=== PATIENT | female | born 1975 | race African-American/Black ===

== ENCOUNTER 2016-07-19 20:20 | Emergency (ER) | payer MEDICAID ==
[~2016-07-19] VITALS: Ht 165.1 cm; Wt 95.0 kg
[~2016-07-19 20:20] MED LIST: CYCL5TAB PO; IBUP-232 PO; PRED50 PO
[2016-07-19 20:22] VITALS: BP 133/76; PULSE 74; RESP 16; TEMP 98.2; O2SAT 98
[2016-07-19 23:55] VITALS: BP 119/76; PULSE 64; RESP 16; O2SAT 98
--- NOTE | 2016-07-20 00:05 | PD ---
HPI Chief Complaint: Neuro Symptoms/ Deficits Time Seen by Provider: 23:47 Travel History International Travel<30 days: No Contact w/Intl Traveler<30days: No Traveled to known affect area: No History of Present Illness HPI The patient is a 41-year-old [place] female who presents to the emergency department for numbness and swelling of the face that radiates down the arms and legs. The patient states that she was recently treated for an infection a lymph node on the face with antibiotics and steroids. The patient was at a basketball game earlier tonight when she developed a fullness sensation and tightness sensation to the face that went down the arms and legs. Patient states it lasted for several 4 hours and then resolved. She denied any headache, chest pain, shortness breath, nausea, vomiting, or abdominal pain. She denies any company neck pain. She denies any history of electrolytes abnormalities and denies taking any chronic medications. PFSH Past Medical History Hx Anticoagulant Therapy: No Anemia: Yes Heart Rhythm Problems: No Cardiac Catheterization: No Cardiovascular Problems: Yes (SICKLE CELL TRAIT) High Cholesterol: No Chemotherapy: No Congestive Heart Failure: No Cerebrovascular Accident: No Diabetes: No Diminished Hearing: No GERD: Yes Gout: Yes Hypertension: No Respiratory: No Immunizations Current: No Migraines: Yes Pneumonia: Yes Sickle Cell Disease: Yes (TRAIT) ?: Unknown : 3 Para: 2 Miscarriage: 1 : 0 Tubal Ligation: Yes Past Surgical History Section: Yes (X 2) Coronary Artery Bypass Graft: No Gynecologic Surgery: Yes Hysterectomy: No Family History Family Myocardial Infarction: Yes (PATERNAL AUNT at an early age) Social History Alcohol Use: Yes (OCCASIONAL) Tobacco Use: No Substance Use: No Allergies-Medications (Allergen,Severity, Reaction): Coded Allergies: No Known Allergies (Verified , 07/19/16) Reported Meds & Prescriptions Reported Meds & Active Scripts Active No Active Prescriptions or Reported Medications Review of Systems Except as stated in HPI: all other systems reviewed are Neg General / Constitutional: No: Fever HENT: Positive: Other (as noted in history of present illness), No: Lightheadedness Cardiovascular: No: Chest Pain or Discomfort Respiratory: No: Shortness of Breath Gastrointestinal: No: Nausea, Vomiting Skin: No Rash, No Other Neurologic: Positive: Other (as noted in the history of present illness) Physical Exam Narrative GENERAL: Awake, alert, nontoxic-appearing 41-year-old female who appears her stated age and is in no acute respiratory distress. SKIN: Warm and dry. HEAD: Atraumatic. Normocephalic. EYES: Pupils equal and round. Pupils are 4 mm bilateral reactive. EOMs are intact. ENT: No nasal bleeding or discharge. Mucous membranes pink and moist. NECK: Trachea midline. No JVD. CARDIOVASCULAR: Regular rate and rhythm. No murmur appreciated. RESPIRATORY: No accessory muscle use. Clear to auscultation. Breath sounds equal bilaterally. GASTROINTESTINAL: Abdomen soft, non-tender, nondistended. Hepatic and splenic margins not palpable. MUSCULOSKELETAL: No obvious deformities. No clubbing. No cyanosis. No edema. NEUROLOGICAL: Awake and alert. No obvious cranial nerve deficits. Motor grossly within normal limits. Normal speech. Sensation is symmetric to the face , arms, legs to soft touch. Sensation is intact in radial, median, and ulnar distribution of the upper extremities bilateral. Smile is symmetric. There is no dysarthria. No drift of the upper or lower extremity's. PSYCHIATRIC: Appropriate mood and affect; insight and judgment normal. Data Data Last Documented VS Vital Signs Date Time Temp Pulse Resp B/P Pulse Ox O2 Delivery O2 Flow Rate FiO2 07/19/16 23:55 64 16 119/76 98 Room Air 07/19/16 20:22 98.2 Orders Electrocardiogram (07/19/16 20:26) Comprehensive Metabolic Panel (07/19/16 23:57) Westergren Sedimentation Rate (07/19/16 23:57) C-Reactive Protein (Crp) (07/19/16 23:57) Complete Blood Count With Diff (07/19/16 23:57) Labs Laboratory Tests Test 07/20/16 00:00 White Blood Count 8.7 TH/MM3 Red Blood Count 4.13 MIL/MM3 Hemoglobin 11.1 GM/DL Hematocrit 33.9 % Mean Corpuscular Volume 82.0 FL Mean Corpuscular Hemoglobin 26.9 PG Mean Corpuscular Hemoglobin 32.8 % Concent Red Cell Distribution Width 15.7 % Platelet Count 275 TH/MM3 Mean Platelet Volume 9.4 FL Neutrophils (%) (Auto) 57.2 % Lymphocytes (%) (Auto) 33.8 % Monocytes (%) (Auto) 8.1 % Eosinophils (%) (Auto) 0.3 % Basophils (%) (Auto) 0.6 % Neutrophils # (Auto) 5.0 TH/MM3 Lymphocytes # (Auto) 2.9 TH/MM3 Monocytes # (Auto) 0.7 TH/MM3 Eosinophils # (Auto) 0.0 TH/MM3 Basophils # (Auto) 0.0 TH/MM3 CBC Comment DIFF FINAL Differential Comment Erythrocyte Sedimentation Rate 21 mm/hr Sodium Level 142 MEQ/L Potassium Level 3.7 MEQ/L Chloride Level 109 MEQ/L Carbon Dioxide Level 26.1 MEQ/L Anion Gap 7 MEQ/L Blood Urea Nitrogen 9 MG/DL Creatinine 0.62 MG/DL Estimat Glomerular Filtration 130 ML/MIN Rate Random Glucose 107 MG/DL Calcium Level 8.3 MG/DL Total Bilirubin 0.4 MG/DL Aspartate Amino Transf 12 U/L (AST/SGOT) Alanine Aminotransferase 25 U/L (ALT/SGPT) Alkaline Phosphatase 63 U/L C-Reactive Protein 0.53 MG/DL Total Protein 6.8 GM/DL Albumin 3.4 GM/DL MDM Medical Decision Making Medical Screen Exam Complete: Yes Emergency Medical Condition: Yes Medical Record Reviewed: Yes Interpretation(s) Laboratory Tests Test 07/20/16 00:00 White Blood Count 8.7 TH/MM3 Red Blood Count 4.13 MIL/MM3 Hemoglobin 11.1 GM/DL Hematocrit 33.9 % Mean Corpuscular Volume 82.0 FL Mean Corpuscular Hemoglobin 26.9 PG Mean Corpuscular Hemoglobin 32.8 % Concent Red Cell Distribution Width 15.7 % Platelet Count 275 TH/MM3 Mean Platelet Volume 9.4 FL Neutrophils (%) (Auto) 57.2 % Lymphocytes (%) (Auto) 33.8 % Monocytes (%) (Auto) 8.1 % Eosinophils (%) (Auto) 0.3 % Basophils (%) (Auto) 0.6 % Neutrophils # (Auto) 5.0 TH/MM3 Lymphocytes # (Auto) 2.9 TH/MM3 Monocytes # (Auto) 0.7 TH/MM3 Eosinophils # (Auto) 0.0 TH/MM3 Basophils # (Auto) 0.0 TH/MM3 CBC Comment DIFF FINAL Differential Comment Erythrocyte Sedimentation Rate 21 mm/hr Sodium Level 142 MEQ/L Potassium Level 3.7 MEQ/L Chloride Level 109 MEQ/L Carbon Dioxide Level 26.1 MEQ/L Anion Gap 7 MEQ/L Blood Urea Nitrogen 9 MG/DL Creatinine 0.62 MG/DL Estimat Glomerular Filtration 130 ML/MIN Rate Random Glucose 107 MG/DL Calcium Level 8.3 MG/DL Total Bilirubin 0.4 MG/DL Aspartate Amino Transf 12 U/L (AST/SGOT) Alanine Aminotransferase 25 U/L (ALT/SGPT) Alkaline Phosphatase 63 U/L C-Reactive Protein 0.53 MG/DL Total Protein 6.8 GM/DL Albumin 3.4 GM/DL Differential Diagnosis Differential diagnosis includes hypocalcemia, hypercalcemia, hypokalemia, acute neurologic deficit, medication side effect, allergic reaction. Narrative Course Labs were drawn and sent. The patient was monitored in the emergency department. The patient's calcium is minimally low at 8.3. CRP is minimally elevated 0.53 and sedimentation rate minimally elevated at 21. No definitive cause of the patient's "tightness ", but she is stable for outpatient follow-up and evaluation. Diagnosis Primary Impression: Paresthesias Patient Instructions: General Instructions Additional Instructions: Please provide a patient a copy of her labs at discharge. Follow-up with your primary physician, Dr. Seaman. Return if symptoms worsen or progress. Scripts No Active Prescriptions or Reported Meds Disposition: DISCHARGE HOME Condition: Stable Cong Glez MD Jul 20, 2016 00:05
[2016-07-20 00:27] LABS: BASOPHIL % 0.6 % (0.0-2.0); EOSINOPHIL % 0.3 % (0.0-4.0); HEMATOCRIT 33.9 % (35.0-46.0); HEMO FLAGS DIFF FINAL; LYMPH % 33.8 % (9.0-44.0); LYMPHOCYTE # 2.9 TH/MM3 (1.0-4.8); MEAN CORPUSCULAR HEMOGLOBIN 26.9 PG (27.0-34.0); MEAN CORPUSCULAR HGB CONC 32.8 % (32.0-36.0); MONO % 8.1 % (0.0-8.0); NEUT % 57.2 % (16.0-70.0); PLATELET COUNT 275 TH/MM3 (150-450); RED BLOOD COUNT 4.13 MIL/MM3 (4.00-5.30); RED CELL DISTRIBUTION WIDTH 15.7 % (11.6-17.2); WHITE BLOOD COUNT 8.7 TH/MM3 (4.0-11.0)
[2016-07-20 00:43] LABS: ANION GAP 7 MEQ/L (5-15); AST (GOT) 12 U/L (15-37); BICARBONATE 26.1 MEQ/L (21.0-32.0); BLOOD UREA NITROGEN 9 MG/DL (7-18); CHLORIDE 109 MEQ/L (98-107); GLOMERULAR FILTRATION RATE 130 ML/MIN (>89); POTASSIUM 3.7 MEQ/L (3.5-5.1); SODIUM (NA) 142 MEQ/L (136-145)
[2016-07-20 00:47] LABS: ALKALINE PHOSPHATASE 63 U/L (45-117); ALT (GPT) 25 U/L (10-53); TOTAL BILIRUBIN ADULT 0.4 MG/DL (0.2-1.0)
[2016-07-20 01:33] VITALS: BP 98/50; PULSE 62; RESP 16; O2SAT 99
--- NOTE | 2016-07-20 22:47 | EKG ---
Date Performed: 07/19/2016 Time Performed: 20:29:48 PTAGE: 41 years EKG: Sinus rhythm NONSPECIFIC T-WAVE ABNORMALITY BORDERLINE ECG PREVIOUS TRACING : 03/16/2016 01.24 DOCTOR: Sena Man Interpretating Date/Time 07/20/2016 22:43:43
== END 2016-07-20 01:34 | disposition home or self-care (01) ==
LOC: NEPC 20:20
DX: R20.8 Other disturbances of skin sensation (principal); R94.31 Abnormal electrocardiogram [ECG] [EKG]; D57.3 Sickle-cell trait; Z86.2 Personal history of diseases of the blood and blood-forming organs and certain disorders involving the immune mechanism; Z87.19 Personal history of other diseases of the digestive system; Z87.39 Personal history of other diseases of the musculoskeletal system and connective tissue; Z86.69 Personal history of other diseases of the nervous system and sense organs; Z87.01 Personal history of pneumonia (recurrent)
CPT/HCPCS: 80053; 85025; 85652; 86140; 93005

== ENCOUNTER 2016-07-27 00:05 | Emergency (ER) | payer MEDICAID ==
[~2016-07-27] VITALS: Ht 165.1 cm; Wt 97.0 kg
[2016-07-27 00:07] VITALS: BP 132/78; PULSE 78; RESP 15; TEMP 98; O2SAT 98
[2016-07-27 01:45] VITALS: BP 120/74; PULSE 80; RESP 18; O2SAT 98
[2016-07-27] MEDS ORDERED: KETOROLAC TROMETHAMINE 30 MG/ML (IVP) VIAL IVP ONE (02:15)
[2016-07-27 02:30] VITALS: BP 118/74; PULSE 78; RESP 18; O2SAT 99
--- NOTE | 2016-07-27 02:37 | PD ---
HPI Chief Complaint: Pain: Acute or Chronic Time Seen by Provider: 01:48 Travel History International Travel<30 days: No Contact w/Intl Traveler<30days: No Traveled to known affect area: No History of Present Illness HPI 41-year-old woman presents emergent department complaining of left arm feeling heavy, ongoing for several weeks. Also of left face fullness, head pain, pressure around her eyes. She feels left shoulder pains. Skin ongoing for about a month or so with the pain. It was worse today. She states her left eye feels swollen, and has blurry vision. She was seen emergency department for this previously had some lab work done that was negative. History Past Medical History Narrative Medical Chronic back pain Tetanus Vaccination: Unknown LMP: 07/20/2016 : 3 Para: 2 Social History Alcohol Use: Yes (OCCASIONAL) Tobacco Use: No Allergies-Medications (Allergen,Severity, Reaction): Coded Allergies: No Known Allergies (Verified , 07/19/16) Reported Meds & Prescriptions Reported Meds & Active Scripts Active No Active Prescriptions or Reported Medications Review of Systems Except as stated in HPI: all other systems reviewed are Neg Physical Exam Narrative GENERAL: Well-appearing 41 year-old woman, no acute distress. SKIN: Warm and dry. HEAD: Atraumatic. Normocephalic. EYES: Pupils equal and round. No scleral icterus. No injection or drainage. No injection. No periorbital edema. ENT: No nasal bleeding or discharge. Mucous membranes pink and moist. NECK: Trachea midline. No torticollis. CARDIOVASCULAR: Regular rate and rhythm. No murmur appreciated. RESPIRATORY: No accessory muscle use. Clear to auscultation. Breath sounds equal bilaterally. GASTROINTESTINAL: Abdomen soft, non-tender, nondistended. Hepatic and splenic margins not palpable. MUSCULOSKELETAL: No obvious deformities. No edema. NEUROLOGICAL: Awake and alert. No obvious cranial nerve deficits. Motor grossly within normal limits. Strength full and equal upper and lower extremity is. No drift. Reflexes symmetric. No gross sensory deficits. Normal speech. PSYCHIATRIC: Appropriate mood and affect; insight and judgment normal. Data Data Last Documented VS Vital Signs Date Time Temp Pulse Resp B/P Pulse Ox O2 Delivery O2 Flow Rate FiO2 07/27/16 00:07 98.0 78 15 132/78 98 Room Air Orders Ketorolac Inj (Toradol Inj) (07/27/16 02:15) [facility] Medical Decision Making Medical Screen Exam Complete: Yes Emergency Medical Condition: Yes Differential Diagnosis Radiculopathy, sinusitis, demyelinating disease, other Narrative Course Medical decision making Is a 41-year-old woman with several weeks to months worth of left-sided heaviness and fullness in the face some headache and vision changes. Unremarkable exam. Etiology is unclear. I difficulty tying all the symptoms together no one etiology. May have some radiculopathy in the neck. Yun and sinusitis symptoms. Doesn't really seem like stroke or CVA or myelinating disease. She is a primary care physician. At this point I recommended she follow up with her primary care physician further evaluation in advanced testing. Diagnosis Primary Impression: Paresthesias Additional Instructions: Continue current medications. Follow-up with Dr. Seamna for further evaluation. Return to the emergency department for any new or worsening symptoms. Med/Other Pt SpecificInfo: No Change to Meds Scripts No Active Prescriptions or Reported Meds Disposition: 01 DISCHARGE HOME Condition: Stable Martir Welch MD Jul 27, 2016 02:37
[2016-07-27 03:13] VITALS: BP 119/71
== END 2016-07-27 03:36 | disposition home or self-care (01) ==
LOC: NEPC 00:05
DX: R20.8 Other disturbances of skin sensation (principal); H57.8 Other specified disorders of eye and adnexa; R51 Headache; H53.8 Other visual disturbances; M25.512 Pain in left shoulder; Z87.39 Personal history of other diseases of the musculoskeletal system and connective tissue
CPT/HCPCS: 96374; 99283; J1885

== ENCOUNTER 2016-08-02 21:17 | Emergency (ER) | payer MEDICAID ==
[~2016-08-02] VITALS: Ht 165.1 cm; Wt 95.0 kg
[2016-08-02 21:19] VITALS: BP 147/88; PULSE 80; RESP 16; TEMP 98.2; O2SAT 98
[2016-08-02] MEDS ORDERED: CIPR-9 PO (21:33)
--- NOTE | 2016-08-02 22:35 | PD ---
HPI Chief Complaint: Skin Problem Time Seen by Provider: 22:31 Travel History International Travel<30 days: No Contact w/Intl Traveler<30days: No Traveled to known affect area: No History of Present Illness HPI 41-year-old black female presents to emergency Department with complaints of an abscess between her breasts. She states that she has had this in the past and has had her incision and drainage. She states actually I had done this in the past for her. She is currently taking Cipro for a infection in her face. She denies any fever or chills. No drainage. PFSH Past Medical History Narrative Medical Skin abscesses Hx Anticoagulant Therapy: No Anemia: Yes Heart Rhythm Problems: No Cardiac Catheterization: No Cardiovascular Problems: Yes (SICKLE CELL TRAIT) High Cholesterol: No Chemotherapy: No Congestive Heart Failure: No Cerebrovascular Accident: No Diabetes: No Diminished Hearing: No GERD: Yes Gout: Yes Hypertension: No Respiratory: No Immunizations Current: No Migraines: Yes Pneumonia: Yes Sickle Cell Disease: Yes (TRAIT) ?: Not LMP: 07/22/16 : 3 Para: 2 Miscarriage: 1 : 0 Tubal Ligation: Yes Past Surgical History Section: Yes (X 2) Coronary Artery Bypass Graft: No Gynecologic Surgery: Yes Hysterectomy: No Social History Alcohol Use: Yes (OCCASIONAL) Tobacco Use: No Substance Use: No Allergies-Medications (Allergen,Severity, Reaction): Coded Allergies: No Known Allergies (Verified , 08/02/16) Reported Meds & Prescriptions Reported Meds & Active Scripts Active Lortab (Hydrocodone-Acetaminophen) 5-325 Mg Tab 1 Tab PO Q4H PRN Bactrim DS (Sulfamethoxazole-Trimethoprim) 800-160 Mg Tab 1 Tab PO BID Reported Cipro (Ciprofloxacin HCl) 500 Mg Tab 500 Mg PO BID Review of Systems Except as stated in HPI: all other systems reviewed are Neg Skin: Positive Rash, Positive Lumps, Positive Lesions Physical Exam Narrative GENERAL: This is a well-nourished, well-developed patient, in no apparent distress. SKIN: No rashes, ecchymoses or lesions. Warm and dry. HEAD: Atraumatic. Normocephalic. EYES: PERRL, EOMI, no discharge or injection. No scleral icterus. EARS: Clear NOSE: Nasal turbinates appear normal. THROAT: Mucosa pink and moist. Airway patent. NECK: Trachea midline. supple, moves head freely. LUNGS: Clear to auscultation. CV: Regular in rhythm. ABDOMEN: Soft nontender. EXT: No clubbing cyanosis or edema. Data Data Last Documented VS Vital Signs Date Time Temp Pulse Resp B/P Pulse Ox O2 Delivery O2 Flow Rate FiO2 08/02/16 21:19 98.2 80 16 147/88 98 Room Air Orders Acetamin-Hydrocod 325-5 Mg (Burns 5-325 (08/02/16 23:15) Sulfamet-Trimeth Ds 800-160 Mg (Bactrim (08/02/16 23:15) [facility] Medical Decision Making Medical Screen Exam Complete: Yes Emergency Medical Condition: Yes Medical Record Reviewed: Yes Differential Diagnosis MDM: High Differential diagnoses: Abscess, folliculitis, cellulitis, lymphangitis, abrasion, contact dermatitis Narrative Course An incision and drainage has been performed. Patient given Bactrim DS and Lortab 5 a grams by mouth. Procedures Procedure Narrative Nely Ordaz is in attendance. I&D abscess: After the risks and benefits were discussed the following procedure was performed. The skin is prepped and draped in the usual sterile fashion using Betadine. The abscess is anesthetized with 1% lidocaine with epinephrine and 0.5% Marcaine. After adequate anesthesia, an 15 blade scalpel is used to make a 2 centimeter central incision. Perulant material is expressed. Loculations are broken up using curved Tova forceps. The wound is cleansed deeply using dilute Betadine and peroxide on Q-tips. The wound is packed open using iodoform gauze. A clean dressing is applied. The patient tolerated the procedure well. There was no complications. Follow-up instructions were given to the patient. Diagnosis Primary Impression: incision and drainage abscess Patient Instructions: General Instructions Additional Instructions: Rest. Elevation. keep clean and dry. remove the packing in two days. Daily wound care with soap, water and Neosporin. Three Advil every 6 hours. Septra DS, and Lortab. Follow-up with a primary care doctor in one week. Return to the ER for any problems. Med/Other Pt SpecificInfo: Prescription(s) given, Wound Care Scripts Hydrocodone-Acetaminophen (Lortab)5-325 Mg Tab1 Tab PO Q4H PRN (PAIN) #12 TAB Prov:Osbaldo Cortes MD 08/02/16 Sulfamethoxazole-Trimethoprim (Bactrim DS)800-160 Mg Tab1 Tab PO BID #14 TAB Prov:Osbaldo Cortes MD 08/02/16 Disposition: 01 DISCHARGE HOME Condition: Stable Héctor Harding Aug 02, 2016 22:35
[2016-08-02] MEDS ORDERED: HYDR-3533 PO (23:04)
[2016-08-02] MEDS ORDERED: BACT800T5 PO (23:04)
[2016-08-02] MEDS ORDERED: SULFAMETHOXAZOLE-TRIMETHOPRIM DS 800-160 MG TAB PO ONE (23:15)
[2016-08-02] MEDS ORDERED: ACETAMINOPHEN/HYDROcodone 325 MG/5 MG TAB PO ONE (23:15)
== END 2016-08-02 23:26 | disposition home or self-care (01) ==
LOC: NEPB 21:17
DX: L02.213 Cutaneous abscess of chest wall (principal); D57.3 Sickle-cell trait
CPT/HCPCS: 10061

== ENCOUNTER 2016-10-16 11:54 | Emergency (ER) | payer MEDICAID ==
[~2016-10-16] VITALS: Ht 165.1 cm; Wt 93.0 kg
[~2016-10-16 11:54] MED LIST changes: +BACT800T5 PO; +CIPR-9 PO; -CYCL5TAB PO; +HYDR-3533 PO; -IBUP-232 PO; -PRED50 PO
[2016-10-16 11:56] VITALS: BP 137/84; PULSE 82; RESP 20; TEMP 98.7; O2SAT 100
--- NOTE | 2016-10-16 12:13 | PD ---
Physical Exam Time Seen by Provider: 12:10 Narrative 41 year old female with no medical history presents to ED for evaluation of intermittent sharp pains "all over her body" for the last three days. Reports numbness and tingling in her face and pain that began in her right arm today. Reports chills, unknown fever. Also states she has had some sensation of lightheadedness. No N/V/D. No other symptoms to report. Data Data Last Documented VS Vital Signs Date Time Temp Pulse Resp B/P Pulse Ox O2 Delivery O2 Flow Rate FiO2 10/16/16 11:56 98.7 82 20 137/84 100 MDM Medical Record Reviewed: Yes Supervised Visit with DHARA: No Narrative Course 41 year old female presents to ED for evaluation of multiple complaints. Appears without distress. VSS Condition: Stable Kari Owusu Oct 16, 2016 12:13
[2016-10-16] MEDS ORDERED: GABA100C4 PO (12:58)
--- NOTE | 2016-10-16 12:58 | PD ---
HPI Chief Complaint: Pain: Acute or Chronic Time Seen by Provider: 12:24 Travel History International Travel<30 days: No Contact w/Intl Traveler<30days: No Traveled to known affect area: No History of Present Illness HPI This is a 41-year-old female who presents to the emergency department with shooting pains that have been going on over the past 4 days, starting in her left leg, progressing to her left arm and chest and then now progressing to her right arm, back of her neck associated with a headache. She describes the pain as shooting, associated with numbness and tingling, and sometimes she gets tingling in her face. She's been having this type of pain for months intermittently. She follows with Dr. Gris dickens that she doesn't feel like he is getting to the bottom of the problem. She's been to the emergency department twice before for these symptoms and has had reassuring blood work performed. She's never seen a neurologist. She takes Lortab for chronic back pain. PFSH Past Medical History Hx Anticoagulant Therapy: No Anemia: Yes Heart Rhythm Problems: No Cardiac Catheterization: No Cardiovascular Problems: Yes (SICKLE CELL TRAIT) High Cholesterol: No Chemotherapy: No Congestive Heart Failure: No Cerebrovascular Accident: No Diabetes: No Diminished Hearing: No GERD: Yes Gout: Yes Hypertension: No Respiratory: No Immunizations Current: No Migraines: Yes Pneumonia: Yes Sickle Cell Disease: Yes (TRAIT) ?: Not : 3 Para: 2 Miscarriage: 1 : 0 Tubal Ligation: Yes Past Surgical History Section: Yes (X 2) Coronary Artery Bypass Graft: No Gynecologic Surgery: Yes Hysterectomy: No Family History Family Myocardial Infarction: Yes (PATERNAL AUNT at an early age) Social History Alcohol Use: Yes (OCCASIONAL) Tobacco Use: No Substance Use: No Allergies-Medications (Allergen,Severity, Reaction): Coded Allergies: No Known Allergies (Verified , 10/16/16) Reported Meds & Prescriptions Reported Meds & Active Scripts Active Lortab (Hydrocodone-Acetaminophen) 5-325 Mg Tab 1 Tab PO Q4H PRN Bactrim DS (Sulfamethoxazole-Trimethoprim) 800-160 Mg Tab 1 Tab PO BID Reported Cipro (Ciprofloxacin HCl) 500 Mg Tab 500 Mg PO BID Review of Systems Except as stated in HPI: all other systems reviewed are Neg Physical Exam Narrative GENERAL:Well appearing, no acute distress SKIN: Focused skin assessment warm and dry. HEAD: Atraumatic. Normocephalic. EYES: Pupils equal and round. No injection or drainage. ENT: Moist mucous membranes NECK: Trachea midline. CARDIOVASCULAR: Regular rate and rhythm. No murmur appreciated. RESPIRATORY: Clear to auscultation. Breath sounds equal bilaterally. GASTROINTESTINAL: Abdomen soft, non-tender, nondistended. MUSCULOSKELETAL: No obvious deformities. NEUROLOGICAL: Awake and alert. No obvious cranial nerve deficits. Moving all extremities. PSYCHIATRIC: Appropriate mood and affect; insight and judgment normal. Data Data Last Documented VS Vital Signs Date Time Temp Pulse Resp B/P Pulse Ox O2 Delivery O2 Flow Rate FiO2 10/16/16 12:46 18 10/16/16 11:56 98.7 82 137/84 100 MDM Medical Decision Making Medical Screen Exam Complete: Yes Emergency Medical Condition: Yes Interpretation(s) Afebrile, no tachycardia, normotensive Differential Diagnosis Fibromyalgia, multiple sclerosis, radiculopathy, somatization disorder Narrative Course This is a 41-year-old female who presents to the emergency department with sharp shooting pains all over her body associated with numbness and tingling. These pains have been going on for months. She says today her pain is different only because her right arm is involved and it usually mostly affects the left side of her body. She has no objective neurologic deficit. She is well-appearing. I don't think this is an acute issue and I think she requires outpatient follow-up with neurology. I did offer to start her on a low dose of gabapentin as her description of symptoms is consistent with possible neuropathic pain. Patient will be discharged home. Diagnosis Primary Impression: Chronic pain Qualified Code: G89.29 - Other chronic pain Referrals: Niya Tellez MD Additional Instructions: If you develop severe chest pain, shortness of breath, sweating, lightheadedness , dizziness or difficulty breathing return to the emergency department immediately. Followup with your primary care physician in 2-3 days if your symptoms are not resolved. Med/Other Pt SpecificInfo: Prescription(s) given Scripts Gabapentin 100 Mg [id number] Mg PO TID #90 CAP Ref 0 Prov:Ledy Atwood MD 10/16/16 Disposition: 01 DISCHARGE HOME Condition: Stable Ledy Atwood MD Oct 16, 2016 12:58
== END 2016-10-16 14:05 | disposition home or self-care (01) ==
LOC: NEPD 11:54
DX: G89.29 Other chronic pain (principal)
CPT/HCPCS: 99283

== ENCOUNTER 2016-11-19 07:38 | Observation (INO) | payer MEDICAID ==
[~2016-11-19] VITALS: Ht 165.1 cm; Wt 94.0 kg
[~2016-11-19 07:38] MED LIST changes: +GABA100C4 PO
[2016-11-19 07:42] VITALS: BP 148/75; PULSE 62; RESP 15; TEMP 98; O2SAT 100
--- NOTE | 2016-11-19 07:49 | PD ---
HPI Chief Complaint: Cardiac Complaint Time Seen by Provider: 07:49 Travel History International Travel<30 days: No Contact w/Intl Traveler<30days: No Traveled to known affect area: No History of Present Illness HPI 41-year-old female came to the emergency room with history of on and off chest pain for past 1 week. Patient describes the pain to be substernal and epigastric region radiating to her left side of the chest and left arm. Pain is stabbing and currently it 7 out of 10. She says the pain also is in her abdomen and lower back. The pain is vaguely described in the other location except for the chest which she consistently describes as midsternal radiating to her left side of the chest under her left breast and to the left arm. No history of nausea vomiting, no history of shortness of breath or any syncopal episode. No aggravating or relieving factors identified. Vital signs were otherwise stable. Patient is not a smoker. PFSH Past Medical History Narrative Medical List of her past medical, surgical, social and family history was reviewed from the nursing note. Hx Anticoagulant Therapy: No Anemia: Yes Heart Rhythm Problems: No Cardiac Catheterization: No Cardiovascular Problems: Yes (SICKLE CELL TRAIT) High Cholesterol: No Chemotherapy: No Congestive Heart Failure: No Cerebrovascular Accident: No Diabetes: No Diminished Hearing: No GERD: Yes Gout: Yes Hypertension: No Respiratory: No Immunizations Current: No Migraines: Yes Pneumonia: Yes Sickle Cell Disease: Yes (TRAIT) ?: Not LMP: 11/15/16 : 3 Para: 2 Miscarriage: 1 : 0 Tubal Ligation: Yes Past Surgical History Section: Yes (X 2) Coronary Artery Bypass Graft: No Gynecologic Surgery: Yes Hysterectomy: No Social History Alcohol Use: Yes (OCCASIONAL) Tobacco Use: No Substance Use: No Allergies-Medications (Allergen,Severity, Reaction): Coded Allergies: No Known Allergies (Verified , 11/19/16) Comments No known drug allergies. Reported Meds & Prescriptions Reported Meds & Active Scripts Active Lortab (Hydrocodone-Acetaminophen) 5-325 Mg Tab 1 Tab PO Q4H PRN Narrative Medication List of her home medications reviewed from the nursing note. Review of Systems Except as stated in HPI: all other systems reviewed are Neg Physical Exam Narrative GENERAL: Awake, alert, obese, anxious, moderate distress SKIN: Focused skin assessment warm/dry. HEAD: Atraumatic. Normocephalic. EYES: Pupils equal and round. No scleral icterus. No injection or drainage. ENT: No nasal bleeding or discharge. Mucous membranes pink and moist. NECK: Trachea midline. No JVD. CARDIOVASCULAR: Regular rate and rhythm. No murmur appreciated. RESPIRATORY: No accessory muscle use. Clear to auscultation. Breath sounds equal bilaterally. GASTROINTESTINAL: Abdomen soft, epigastric tenderness, nondistended. Hepatic and splenic margins not palpable. MUSCULOSKELETAL: No obvious deformities. No clubbing. No cyanosis. No edema. NEUROLOGICAL: Awake and alert. No obvious cranial nerve deficits. Motor grossly within normal limits. Normal speech. PSYCHIATRIC: Appropriate mood and affect; insight and judgment normal. Data Data Last Documented VS Vital Signs Date Time Temp Pulse Resp B/P Pulse Ox O2 Delivery O2 Flow Rate FiO2 11/19/16 08:15 100 Room Air 11/19/16 07:57 72 20 11/19/16 07:42 98.0 148/75 Orders Electrocardiogram (11/19/16 ) Basic Metabolic Panel (Bmp) (11/19/16 08:03) Ckmb (Isoenzyme) Profile (11/19/16 08:03) Complete Blood Count With Diff (11/19/16 08:03) Magnesium (Mg) (11/19/16 08:03) Prothrombin Time / Inr (Pt) (11/19/16 08:03) Act Partial Throm Time (Ptt) (11/19/16 08:03) Troponin I (11/19/16 08:03) Chest, Single Ap (11/19/16 08:03) Ecg Monitoring (11/19/16 08:03) Bilateral Bp Monitoring (11/19/16 08:03) Iv Access Insert/Monitor (11/19/16 08:03) Oximetry (11/19/16 08:03) Oxygen Administration (11/19/16 08:03) Sodium Chloride 0.9% Flush (Ns Flush) (11/19/16 08:15) CKMB (11/19/16 08:00) CKMB% (11/19/16 08:00) Lipase (11/19/16 09:14) Hepatic Functional Panel (11/19/16 09:14) Drug Screen, Random Urine (11/19/16 09:15) Ed Poc Ultrasound (11/19/16 ) Urinalysis - C+S If Indicated (11/19/16 09:29) Admit Order (Ed Use Only) (11/19/16 11:10) Labs Laboratory Tests Test 11/19/16 11/19/16 08:00 10:20 White Blood Count 7.2 TH/MM3 Red Blood Count 4.32 MIL/MM3 Hemoglobin 10.0 GM/DL Hematocrit 32.1 % Mean Corpuscular Volume 74.2 FL Mean Corpuscular Hemoglobin 23.0 PG Mean Corpuscular Hemoglobin 31.1 % Concent Red Cell Distribution Width 17.0 % Platelet Count 343 TH/MM3 Mean Platelet Volume 9.3 FL Neutrophils (%) (Auto) 52.6 % Lymphocytes (%) (Auto) 34.5 % Monocytes (%) (Auto) 11.1 % Eosinophils (%) (Auto) 0.8 % Basophils (%) (Auto) 1.0 % Neutrophils # (Auto) 3.8 TH/MM3 Lymphocytes # (Auto) 2.5 TH/MM3 Monocytes # (Auto) 0.8 TH/MM3 Eosinophils # (Auto) 0.1 TH/MM3 Basophils # (Auto) 0.1 TH/MM3 CBC Comment DIFF FINAL Differential Comment Prothrombin Time 10.7 SEC Prothromb Time International 1.0 RATIO Ratio Activated Partial 24.5 SEC Thromboplast Time Sodium Level 141 MEQ/L Potassium Level 3.8 MEQ/L Chloride Level 109 MEQ/L Carbon Dioxide Level 25.1 MEQ/L Anion Gap 7 MEQ/L Blood Urea Nitrogen 11 MG/DL Creatinine 0.65 MG/DL Estimat Glomerular Filtration 123 ML/MIN Rate Random Glucose 92 MG/DL Calcium Level 9.0 MG/DL Magnesium Level 2.0 MG/DL Total Bilirubin 0.4 MG/DL Direct Bilirubin 0.1 MG/DL Indirect Bilirubin 0.3 MG/DL Aspartate Amino Transf 19 U/L (AST/SGOT) Alanine Aminotransferase 26 U/L (ALT/SGPT) Alkaline Phosphatase 72 U/L Total Creatine Kinase 245 U/L Creatine Kinase MB LESS THAN 0.5 NG/ML Creatine Kinase MB % 0.2 % Troponin I LESS THAN 0.02 NG/ML Total Protein 7.4 GM/DL Albumin 3.8 GM/DL Lipase 131 U/L Urine Color YELLOW Urine Turbidity CLEAR Urine pH 5.0 Urine Specific [place] 1.017 Urine Protein NEG mg/dL Urine Glucose (UA) NEG mg/dL Urine Ketones NEG mg/dL Urine Occult Blood MOD Urine Nitrite NEG Urine Bilirubin NEG Urine Urobilinogen LESS THAN 2.0 MG/DL Urine Leukocyte Esterase NEG Urine RBC 2 /hpf Urine WBC LESS THAN 1 /hpf Urine Squamous Epithelial 1 /hpf Cells Urine Mucus FEW /lpf Microscopic Urinalysis Comment CULT NOT INDICATED Urine Opiates Screen NEG Urine Barbiturates Screen NEG Urine Amphetamines Screen NEG Urine Benzodiazepines Screen NEG Urine Cocaine Screen NEG Urine Cannabinoids Screen NEG MDM Medical Decision Making Medical Screen Exam Complete: Yes Emergency Medical Condition: Yes Medical Record Reviewed: Yes Interpretation(s) Twelve-lead EKG was reviewed by me. Normal sinus rhythm, normal axis, nonspecific ST-T wave changes. Heart rate of 59 bpm. Differential Diagnosis ACS, non-STEMI, nonspecific chest pain, acute cholecystitis, acute pancreatitis Narrative Course 11:13 AM patient told me that she had a stress test done couple months ago at [facility] that was within normal limit. Patient had a stress test done in this hospital in 2014 that was within normal limit as well. Given these I am comfortable discharging this patient home. Her UA is still pending. Procedures Procedure Narrative Emergency department right upper quadrant ultrasound was performed with patient consent. Curvilinear probe was used in the transverse and sagittal views within the right upper quadrant revealing gallbladder without obvious wall thickening, cholecystic fluid, or cholelithiasis. EKG Prior to Arrival: No Diagnosis Primary Impression: Chest pain, atypical Referrals: Primary Care Physician 2 days Additional Instructions: Please return to the ER if the condition worsens or any other new concerns. Otherwise follow-up with your primary care. Med/Other Pt SpecificInfo: No Change to Meds Disposition: 01 DISCHARGE HOME Condition: Stable Lisa Marina MD November 19, 2016 07:49
[2016-11-19 08:15] VITALS: O2SAT 100
[2016-11-19] MEDS ORDERED: SODIUM CHLORIDE 0.9% FLUSH 10 ML FLUSH IVF PRN (08:15)
--- NOTE | 2016-11-19 08:24 | RADRPT ---
EXAM DATE/TIME: 11/19/2016 08:02 [place] COMPARISON: CHEST SINGLE AP, November 15, 2015, 7:47. INDICATIONS : Patient states chest pains. MEDICAL HISTORY : None. SURGICAL HISTORY : None. ENCOUNTER: Initial ACUITY: 2 days PAIN SCORE: 4/10 LOCATION: Bilateral chest FINDINGS: Portable AP view of the chest demonstrates a normal-sized cardiac silhouette. No effusion, consolidat ion, or pneumothorax is visualized. The bones and soft tissues demonstrate no acute abnormality. CONCLUSION: No acute cardiopulmonary abnormality is identified. Mir Koenig MD on November 19, 2016 at 8:22 Board Certified Radiologist. This report was verified electronically.
[2016-11-19 08:31] LABS: AUTOMATED NEUTROPHIL # 3.8 TH/MM3 (1.8-7.7); BASOPHIL # 0.1 TH/MM3 (0-0.2); EOSINOPHIL # 0.1 TH/MM3 (0-0.4); EOSINOPHIL % 0.8 % (0.0-4.0); HEMATOCRIT 32.1 % (35.0-46.0); HEMO FLAGS DIFF FINAL; LYMPH % 34.5 % (9.0-44.0); LYMPHOCYTE # 2.5 TH/MM3 (1.0-4.8); MEAN CELL VOLUME 74.2 FL (80.0-100.0); MEAN CORPUSCULAR HGB CONC 31.1 % (32.0-36.0); MONO % 11.1 % (0.0-8.0); NEUT % 52.6 % (16.0-70.0); PLATELET COUNT 343 TH/MM3 (150-450); RED BLOOD COUNT 4.32 MIL/MM3 (4.00-5.30); WHITE BLOOD COUNT 7.2 TH/MM3 (4.0-11.0)
[2016-11-19 08:40] LABS: APTT (PATIENT) 24.5 SEC (24.3-30.1); PROTHROMBIN TIME - PATIENT 10.7 SEC (9.8-11.6)
[2016-11-19 08:50] LABS: ANION GAP 7 MEQ/L (5-15); BICARBONATE 25.1 MEQ/L (21.0-32.0); BLOOD UREA NITROGEN 11 MG/DL (7-18); CHLORIDE 109 MEQ/L (98-107); GLOMERULAR FILTRATION RATE 123 ML/MIN (>89); POTASSIUM 3.8 MEQ/L (3.5-5.1); SODIUM (NA) 141 MEQ/L (136-145)
[2016-11-19 08:53] LABS: CREATINE KINASE 245 U/L (26-192)
[2016-11-19 09:05] LABS: CKMB LESS THAN 0.5 NG/ML (0.5-3.6)
[2016-11-19 09:48] LABS: INDIRECT BILIRUBIN 0.3 MG/DL (0.0-0.8); TOTAL BILIRUBIN ADULT 0.4 MG/DL (0.2-1.0)
[2016-11-19 11:10] LABS: BLOOD, URINE MOD (NEG); COMMENT (UR) CULT NOT INDICATED; CULTURE IF INDICATED CULT NOT INDICATED; GLUCOSE,URINE NEG (NEG); KETONE, URINE NEG (NEG); MUCUS URINE FEW /lpf (OCC); NITRITE,URINE NEG (NEG); SQUAMOUS EPITHELIAL CELL URINE 1 /hpf (0-5); URINE COLOR YELLOW (YELLW/STRAW)
[2016-11-19 23:46] LABS: AMPHETAMINE, URINE NEG (NEG); BARBITURATES, URINE NEG (NEG); COCAINE, URINE NEG (NEG)
--- NOTE | 2016-11-20 15:36 | EKG ---
Date Performed: 11/19/2016 Time Performed: 07:57:09 PTAGE: 41 years EKG: SINUS BRADYCARDIA MINIMAL VOLTAGE CRITERIA FOR LVH, CONSIDER NORMAL VARIANT BORDERLINE ECG Compared to prior tracing no significant change PREVIOUS TRACING 07/19/2016 20.29.48 DOCTOR: Jennie Pineda Interpretating Date/Time 11/20/2016 15:35:14
== END 2016-11-19 11:56 | disposition home or self-care (01) ==
LOC: NEPC 07:38 → NEDA 11:12 → UNDODEPER 22:10
PROVIDERS: ADMIT Internal Medicine Cardiovascular Disease; ATTEND Internal Medicine Cardiovascular Disease
DX: R07.89 Other chest pain (principal); D57.1 Sickle-cell disease without crisis; K21.9 Gastro-esophageal reflux disease without esophagitis; M10.9 Gout, unspecified; G43.909 Migraine, unspecified, not intractable, without status migrainosus; R94.31 Abnormal electrocardiogram [ECG] [EKG]; D64.9 Anemia, unspecified
CPT/HCPCS: 71010; 80048; 80076; 80307; 81001; 82550; 82552; 83690; 83735; 84484; 85025; 85610; 85730; 93005; 99285; G0378

== ENCOUNTER 2016-12-26 00:32 | Emergency (ER) | payer MEDICAID ==
[~2016-12-26] VITALS: Ht 165.1 cm; Wt 95.0 kg
[~2016-12-26 00:32] MED LIST changes: -BACT800T5 PO; -CIPR-9 PO; -GABA100C4 PO
[2016-12-26 00:35] VITALS: BP 131/77; PULSE 75; RESP 16; TEMP 97.5; O2SAT 100
[2016-12-26 02:43] VITALS: PULSE 98; RESP 16; O2SAT 98
[2016-12-26 02:43] LABS: AUTOMATED NEUTROPHIL # 4.2 TH/MM3 (1.8-7.7); BASOPHIL # 0.1 TH/MM3 (0-0.2); BASOPHIL % 1.1 % (0.0-2.0); EOSINOPHIL # 0.1 TH/MM3 (0-0.4); EOSINOPHIL % 1.1 % (0.0-4.0); HEMO FLAGS DIFF FINAL; LYMPH % 33.5 % (9.0-44.0); LYMPHOCYTE # 2.5 TH/MM3 (1.0-4.8); MEAN CELL VOLUME 71.4 FL (80.0-100.0); MEAN CORPUSCULAR HEMOGLOBIN 22.8 PG (27.0-34.0); MONO % 8.8 % (0.0-8.0); NEUT % 55.5 % (16.0-70.0); PLATELET COUNT 372 TH/MM3 (150-450); RED BLOOD COUNT 4.35 MIL/MM3 (4.00-5.30); RED CELL DISTRIBUTION WIDTH 17.3 % (11.6-17.2); WHITE BLOOD COUNT 7.5 TH/MM3 (4.0-11.0)
[2016-12-26 03:07] LABS: ALT (GPT) 24 U/L (10-53); ANION GAP 8 MEQ/L (5-15); AST (GOT) 14 U/L (15-37); BICARBONATE 26.7 MEQ/L (21.0-32.0); BLOOD UREA NITROGEN 13 MG/DL (7-18); CHLORIDE 109 MEQ/L (98-107); GLOMERULAR FILTRATION RATE 104 ML/MIN (>89); MAGNESIUM 1.9 MG/DL (1.5-2.5); SODIUM (NA) 144 MEQ/L (136-145)
[2016-12-26 03:15] LABS: BLOOD, URINE NEG (NEG); GLUCOSE,URINE NEG (NEG); KETONE, URINE NEG (NEG); MUCUS URINE FEW /lpf (OCC); NITRITE,URINE NEG (NEG); PH, URINE 5.5 (5.0-8.5); SQUAMOUS EPITHELIAL CELL URINE <1 /hpf (0-5); URINE COLOR LIGHT-YELLOW (YELLW/STRAW)
[2016-12-26 03:17] LABS: ALKALINE PHOSPHATASE 81 U/L (45-117); TOTAL BILIRUBIN ADULT 0.4 MG/DL (0.2-1.0)
[2016-12-26 03:19] LABS: CREATINE KINASE 75 U/L (26-192)
[2016-12-26 03:20] LABS: COMMENT (UR) CULT NOT INDICATED; CULTURE IF INDICATED CULT NOT INDICATED
[2016-12-26] MEDS ORDERED: KETOROLAC TROMETHAMINE 30 MG/ML (IVP) VIAL IV PUSH ONE (03:45)
--- NOTE | 2016-12-26 03:53 | PD ---
HPI Chief Complaint: Edema Time Seen by Provider: 01:12 Travel History International Travel<30 days: No Contact w/Intl Traveler<30days: No Traveled to known affect area: No History of Present Illness HPI The patient is a 41 year old female who presents to the [facility] emergency department with a history of lower extremity pain that she reports is present in bilateral feet and legs below the knee that began a few days ago. She reports that the pain is constant although waxes and wanes in severity. She reports that it gets worse when she is standing on her feet and better when she sits down and puts her feet up. She reports that the pain is a shooting pain that starts in the ball of her foot and goes up her leg. She denies any trauma or injury to her legs. She reports that she has noticed some swelling. She denies having any prior history of DVT, PE, or family history of blood clots. On review of systems, the patient denies any recent fevers, cough, congestion, neck pain, chest pain, shortness of breath, abdominal pain, vomiting , diarrhea, urinary symptoms, or neurologic symptoms. [facility] Past Medical History Narrative Medical The patient's past medical history is significant for sickle cell trait, history of anemia, history of acid reflux, history of gout, history of migraine headaches, prior history of pneumonia. Hx Anticoagulant Therapy: No Anemia: Yes Heart Rhythm Problems: No Cardiac Catheterization: No Cardiovascular Problems: Yes (SICKLE CELL TRAIT) High Cholesterol: No Chemotherapy: No Congestive Heart Failure: No Cerebrovascular Accident: No Diabetes: No Diminished Hearing: No GERD: Yes Gout: Yes Heparin Induced Thrombocytopen: No Hypertension: No Respiratory: No Immunizations Current: No Migraines: Yes Pneumonia: Yes Sickle Cell Disease: Yes (TRAIT) ?: Not : 3 Para: 2 Miscarriage: 1 : 0 Tubal Ligation: Yes Past Surgical History Narrative Surgical The patient's past surgical history is significant for C-sections 2, bilateral tubal ligation. Section: Yes (X 2) Coronary Artery Bypass Graft: No Gynecologic Surgery: Yes Hysterectomy: No Family History Family Myocardial Infarction: Yes (PATERNAL AUNT at an early age) Social History Alcohol Use: Yes (OCCASIONAL) Tobacco Use: No Substance Use: No Allergies-Medications (Allergen,Severity, Reaction): Coded Allergies: No Known Allergies (Verified , 12/26/16) Reported Meds & Prescriptions Reported Meds & Active Scripts Active EC-Naprosyn (Naproxen) 500 Mg Tabdr 500 Mg PO BID PRN Lortab (Hydrocodone-Acetaminophen) 5-325 Mg Tab 1 Tab PO Q4H PRN Review of Systems Except as stated in HPI: all other systems reviewed are Neg General / Constitutional: No: Fever Eyes: No: Visual changes HENT: No: Headaches Cardiovascular: Positive: Edema, No: Chest Pain or Discomfort, Dyspnea on exertion Respiratory: No: Shortness of Breath Gastrointestinal: No: Nausea, Vomiting, Diarrhea, Abdominal Pain Genitourinary: No: Dysuria Musculoskeletal: Positive: Myalgias, Edema, Pain Skin: No Rash Neurologic: No: Weakness, Focal Abnormalities, Change in Mentation, Sensory Disturbance Psychiatric: No: Depression Endocrine: No: Polydipsia Hematologic/Lymphatic: No: Easy Bruising Physical Exam Narrative General: The patient is a well-developed well-nourished female in no acute distress. Head and Neck exam: Head is normocephalic atraumatic. Eyes: EOMI, pupils are equal round and reactive to light. Nose: Midline septum with pink mucous membranes Mouth: Dentition unremarkable. Moist mucus membranes. Posterior oropharynx is not erythematous. No tonsillar hypertrophy. Uvula midline. Airway patent. Neck: No palpable lymphadenopathy. No nuchal rigidity. No thyromegaly. Cardiovascular: Regular rate and rhythm without murmurs, gallops, or rubs. Lungs: Clear to auscultation bilaterally. No wheezes, rhonchi, or rales. Abdomen: Soft, without tenderness to palpation in all 4 quadrants of the abdomen. No guarding, rebound, or rigidity. Normal bowel sounds are audible. No tenderness on palpation of McBurney's point. Negative Gillett sign. Extremities: No clubbing, cyanosis, or edema. 2+ pulses in all 4 extremities. Negative Homans sign. No palpable cords. The patient reports having tenderness on palpation of bilateral calves without any discerning edema. She has no erythema. This is associated with pain in the ball of her foot bilaterally worse on the left compared to the right. There is no visible trauma. No erythema or ecchymosis. No skin abnormality noted. Back: No costovertebral angle tenderness to palpation. Neurologic Exam: Cranial nerves 2-12 were intact on exam. Strength is 5/5 in all 4 extremities. No sensory deficits noted. No dysdiadochokinesis. Good finger to nose and Heel to rios bilaterally. Skin Exam: No rash noted. Intact skin that is warm and dry. Data Data Last Documented VS Vital Signs Date Time Temp Pulse Resp B/P Pulse Ox O2 Delivery O2 Flow Rate FiO2 12/26/16 04:28 78 16 105/62 97 Room Air 12/26/16 00:35 97.5 Orders Electrocardiogram (12/26/16 01:21) Complete Blood Count With Diff (12/26/16 01:21) Comprehensive Metabolic Panel (12/26/16 01:21) Ckmb (Isoenzyme) Profile (12/26/16:21) Troponin I (12/26/16:21) B-Type Natriuretic Peptide (12/26/16 01:21) Lipase (12/26/16:21) Urinalysis - C+S If Indicated (12/26/16:21) D-Dimer (12/26/16:21) Magnesium (Mg) (12/26/16 01:21) Thyroid Stimulating Hormone (12/26/16 01:21) Iv Access Insert/Monitor (12/26/16 01:21) Ecg Monitoring (12/26/16 01:21) Oximetry (12/26/16 01:21) Ed Urine Pregnancytest Poc (12/26/16 01:21) Ketorolac Inj (Toradol Inj) (12/26/16 03:45) Labs Laboratory Tests Test 12/26/16 02:30 White Blood Count 7.5 TH/MM3 Red Blood Count 4.35 MIL/MM3 Hemoglobin 9.9 GM/DL Hematocrit 31.0 % Mean Corpuscular Volume 71.4 FL Mean Corpuscular Hemoglobin 22.8 PG Mean Corpuscular Hemoglobin 32.0 % Concent Red Cell Distribution Width 17.3 % Platelet Count 372 TH/MM3 Mean Platelet Volume 9.6 FL Neutrophils (%) (Auto) 55.5 % Lymphocytes (%) (Auto) 33.5 % Monocytes (%) (Auto) 8.8 % Eosinophils (%) (Auto) 1.1 % Basophils (%) (Auto) 1.1 % Neutrophils # (Auto) 4.2 TH/MM3 Lymphocytes # (Auto) 2.5 TH/MM3 Monocytes # (Auto) 0.7 TH/MM3 Eosinophils # (Auto) 0.1 TH/MM3 Basophils # (Auto) 0.1 TH/MM3 CBC Comment DIFF FINAL Differential Comment D-Dimer Quantitative (PE/DVT) 0.44 MG/L FEU Urine Color LIGHT-YELLOW Urine Turbidity CLEAR Urine pH 5.5 Urine Specific [place] 1.014 Urine Protein NEG mg/dL Urine Glucose (UA) NEG mg/dL Urine Ketones NEG mg/dL Urine Occult Blood NEG Urine Nitrite NEG Urine Bilirubin NEG Urine Urobilinogen LESS THAN 2.0 MG/DL Urine Leukocyte Esterase NEG Urine RBC LESS THAN 1 /hpf Urine Squamous Epithelial <1 /hpf Cells Urine Mucus FEW /lpf Microscopic Urinalysis Comment CULT NOT INDICATED Sodium Level 144 MEQ/L Potassium Level 4.0 MEQ/L Chloride Level 109 MEQ/L Carbon Dioxide Level 26.7 MEQ/L Anion Gap 8 MEQ/L Blood Urea Nitrogen 13 MG/DL Creatinine 0.75 MG/DL Estimat Glomerular Filtration 104 ML/MIN Rate Random Glucose 84 MG/DL Calcium Level 8.7 MG/DL Magnesium Level 1.9 MG/DL Total Bilirubin 0.4 MG/DL Aspartate Amino Transf 14 U/L (AST/SGOT) Alanine Aminotransferase 24 U/L (ALT/SGPT) Alkaline Phosphatase 81 U/L Total Creatine Kinase 75 U/L Troponin I LESS THAN 0.02 NG/ML B-Type Natriuretic Peptide 12 PG/ML Total Protein 7.5 GM/DL Albumin 3.6 GM/DL Lipase 99 U/L Thyroid Stimulating Hormone 0.905 uIU/ML 3rd Gen [facility] Medical Decision Making Medical Screen Exam Complete: Yes Emergency Medical Condition: Yes Medical Record Reviewed: Yes Differential Diagnosis Polymyositis, versus arthralgias, versus neuropathy, versus DVT, versus muscle strain, versus muscle cramps. Narrative Course During the course of the patients emergency department visit, the patients history, examination, and differential diagnosis were reviewed with the patient. The patient had IV access obtained and blood work sent for analysis. The patient was placed on a director cardiac with oximetry and blood pressure monitoring. An ECG was done on arrival. The patient's ECG reveals a sinus rhythm with a sinus arrhythmia heart rate is 67, no acute ST segment elevation or depression, T waves inverted in V1, lead 3. A bedside test was negative. The patient was initially provided Toradol 15 mg IV for pain. The patients laboratory studies were reviewed and remarkable for a white count of 7.5, hemoglobin 9.9, platelets 372 with 8.8 monocytes, CMP is remarkable for chloride of 109, AST 14, CPK 75, troponin I less than 0.02, BNP is 12, TSH 0.9, lipase 99, d-dimer is 0.4 for decreased the likelihood of DVT in this patient with no other significant risk factors. Urinalysis is unremarkable. The patient's results were discussed with her. The patient reports that she does have a family history of lupus. We did discuss the possibility of lupus. She will follow-up with her primary care physician for additional testing and the symptoms continue. The patient is resting comfortably and feels better, is alert and in no distress. The patients results and examination findings were discussed with the patient. The repeat examination is unremarkable and benign. The history, exam, diagnostic testing, and current condition do not suggest any significant pathology to warrant further testing, continued ED treatment, admission, or surgical evaluation at this point. The vital signs have been stable. The patient does not have uncontrollable pain, intractable vomiting, or other significant symptoms. The patient's condition is stable and appropriate for discharge. The patient will pursue further outpatient evaluation with a primary care physician or other designated or consulting physician as indicated in the discharge instructions. The patient expressed understanding and was agreeable with this plan. Diagnosis Primary Impression: Lower extremity pain, left Additional Impression: Lower extremity pain, right Referrals: Primary Care Physician 2 days Patient Instructions: General Instructions, Leg Pain (ED), Narcotic given in the ED Additional Instructions: The patient is instructed to follow-up with her primary care physician, Dr. Seaman for additional evaluation and consideration of testing for underlying autoimmune disorder such as lupus due to year family history of lupus. Med/Other Pt SpecificInfo: Prescription(s) given Scripts Naproxen (EC-Naprosyn)500 Mg [id number] Mg PO BID PRN (PAIN GREATER THAN 5) # 10 TAB Ref 0 Prov:Arti Bill MD 12/26/16 Disposition: 01 DISCHARGE HOME Condition: Stable Arti Bill MD Dec 26, 2016 03:53
[2016-12-26] MEDS ORDERED: EC-N500T PO (03:56)
[2016-12-26 04:28] VITALS: BP 105/62; PULSE 78; RESP 16; O2SAT 97
--- NOTE | 2016-12-26 23:09 | EKG ---
Date Performed: 12/26/2016 Time Performed: 02:54:46 PTAGE: 41 years EKG: Sinus rhythm WITH SINUS ARRHYTHMIA LOW QRS VOLTAGE IN PRECORDIAL LEADS BORDERLINE ECG PREVIOUS TRACING : 11/19/2016 07.57 Compared to prior tracing no significant change DOCTOR: Godfrey Toney Interpretating Date/Time 12/26/2016 23:08:08
== END 2016-12-26 04:29 | disposition home or self-care (01) ==
LOC: NEPE 00:32
DX: M79.605 Pain in left leg (principal); M79.604 Pain in right leg; D64.9 Anemia, unspecified; D57.3 Sickle-cell trait; K21.9 Gastro-esophageal reflux disease without esophagitis; M10.9 Gout, unspecified; Z79.899 Other long term (current) drug therapy
CPT/HCPCS: 80053; 81001; 82550; 83690; 83735; 83880; 84443; 84484; 84703; 85025; 85379; 93005; 96374; 99284; J1885

== ENCOUNTER 2017-03-14 20:04 | Emergency (ER) | payer MEDICAID ==
[~2017-03-14] VITALS: Ht 165.1 cm; Wt 97.5 kg
[~2017-03-14 20:04] MED LIST changes: +EC-N500T PO
[2017-03-14 20:05] VITALS: BP 138/85; PULSE 84; RESP 20; TEMP 99.1; O2SAT 99
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
[2017-03-14 21:12] VITALS: RESP 16; O2SAT 99
[2017-03-14] MEDS ORDERED: SODIUM CHLORIDE 0.9% FLUSH 10 ML FLUSH IVF PRN (21:15)
[2017-03-14 21:42] LABS: AUTOMATED NEUTROPHIL # 4.2 TH/MM3 (1.8-7.7); BASOPHIL % 0.7 % (0.0-2.0); EOSINOPHIL # 0.1 TH/MM3 (0-0.4); EOSINOPHIL % 0.8 % (0.0-4.0); HEMO FLAGS DIFF FINAL; LYMPH % 30.8 % (9.0-44.0); LYMPHOCYTE # 2.3 TH/MM3 (1.0-4.8); MEAN CELL VOLUME 69.4 FL (80.0-100.0); MEAN CORPUSCULAR HEMOGLOBIN 21.9 PG (27.0-34.0); MEAN CORPUSCULAR HGB CONC 31.5 % (32.0-36.0); NEUT % 55.7 % (16.0-70.0); PLATELET COUNT 388 TH/MM3 (150-450); RED BLOOD COUNT 4.31 MIL/MM3 (4.00-5.30); RED CELL DISTRIBUTION WIDTH 18.7 % (11.6-17.2); WHITE BLOOD COUNT 7.4 TH/MM3 (4.0-11.0)
--- NOTE | 2017-03-14 21:45 | RADRPT ---
EXAM DATE/TIME: 03/14/2017 21:01 [facility] COMPARISON: CHEST SINGLE AP, November 19, 2016, 8:02. INDICATIONS : Shortness of breath and swelling of both feet. MEDICAL HISTORY : None. SURGICAL HISTORY : None. ENCOUNTER: Initial ACUITY: 4 - 6 days PAIN SCORE: 8/10 LOCATION: Bilateral chest FINDINGS: A single view of the chest demonstrates the lungs to be symmetrically aerated without evidence of mas s, infiltrate or effusion. The cardiomediastinal contours are unremarkable. Osseous structures are intact. CONCLUSION: No evidence of acute cardiopulmonary disease. Mir Manriquez MD on March 14, 2017 at 21:44 Board Certified Radiologist. This report was verified electronically.
[2017-03-14 22:00] LABS: BACTERIA, URINE RARE /hpf; BLOOD, URINE MOD (NEG); GLUCOSE,URINE NEG (NEG); KETONE, URINE NEG (NEG); NITRITE,URINE NEG (NEG); PH, URINE 5.5 (5.0-8.5); URINE COLOR YELLOW (YELLW/STRAW)
[2017-03-14 22:01] LABS: COMMENT (UR) CULTURE INDICATED; CULTURE IF INDICATED CULTURE INDICATED
[2017-03-14 22:13] LABS: BICARBONATE 24.9 MEQ/L (21.0-32.0); POTASSIUM 3.6 MEQ/L (3.5-5.1)
[2017-03-14] MEDS ORDERED: CEPH-460 PO (22:30)
[2017-03-14 22:50] VITALS: BP 156/74; TEMP 98.5
== END 2017-03-14 22:50 | disposition home or self-care (01) ==
LOC: NEPD 20:04
DX: M79.605 Pain in left leg (principal); M79.604 Pain in right leg; M79.89 Other specified soft tissue disorders; N39.0 Urinary tract infection, site not specified; D64.9 Anemia, unspecified; D57.3 Sickle-cell trait; K21.9 Gastro-esophageal reflux disease without esophagitis; M10.9 Gout, unspecified; G62.9 Polyneuropathy, unspecified
CPT/HCPCS: 71010; 80048; 81001; 83880; 84703; 85025; 87086; 99284

== ENCOUNTER 2017-03-16 23:59 | Emergency (ER) | payer MEDICAID ==
[~2017-03-16] VITALS: Ht 175.3 cm; Wt 75.0 kg
[~2017-03-16 23:59] MED LIST changes: +CEPH-460 PO; -EC-N500T PO
[2017-03-17 00:01] VITALS: BP 126/78; PULSE 66; RESP 15; TEMP 98.5; O2SAT 100
[2017-03-17] MEDS ORDERED: KETOROLAC TROMETHAMINE 60 MG/2 ML (IM) VIAL IM ONE (00:45)
--- NOTE | 2017-03-17 00:50 | PD ---
HPI Chief Complaint: Pain: Acute or Chronic Time Seen by Provider: 00:25 Travel History International Travel<30 days: No Contact w/Intl Traveler<30days: No Traveled to known affect area: No History of Present Illness HPI So 41 year-old woman presents emergent from complaining of left leg swelling, left foot pain and tingling, left arm pain and tingling, left neck pain, left- sided chest pain, and left sided abdominal pain. States symptoms been ongoing for some time, worse over the past several days. History Past Medical History Medical History: Denies Significant Hx Tetanus Vaccination: Never Vaccinated Influenza Vaccination: Yes LMP: 03/16/17 : 3 Para: 2 Social History Alcohol Use: Yes (OCCASIONAL) Tobacco Use: No Allergies-Medications (Allergen,Severity, Reaction): Coded Allergies: No Known Allergies (Verified , 03/17/17) Reported Meds & Prescriptions Reported Meds & Active Scripts Active Keflex (Cephalexin) 500 Mg Cap 500 Mg PO Q12H 7 Days Lortab (Hydrocodone-Acetaminophen) 5-325 Mg Tab 1 Tab PO Q4H PRN Review of Systems Except as stated in HPI: all other systems reviewed are Neg Physical Exam Narrative GENERAL: Well-appearing 41 year-old woman, no acute distress. SKIN: Focused skin assessment warm/dry. HEAD: Atraumatic. Normocephalic. EYES: Pupils equal and round. No scleral icterus. No injection or drainage. ENT: No nasal bleeding or discharge. Mucous membranes pink and moist. NECK: Trachea midline. No JVD. CARDIOVASCULAR: Regular rate and rhythm. No murmur appreciated. RESPIRATORY: No accessory muscle use. Clear to auscultation. Breath sounds equal bilaterally. GASTROINTESTINAL: Abdomen soft, non-tender, nondistended. Hepatic and splenic margins not palpable. MUSCULOSKELETAL: No obvious deformities. No clubbing. No cyanosis. No edema. NEUROLOGICAL: Awake and alert. No obvious cranial nerve deficits. Motor grossly within normal limits. Normal speech. PSYCHIATRIC: Appropriate mood and affect; insight and judgment normal. Data Data Last Documented VS Vital Signs Date Time Temp Pulse Resp B/P (MAP) Pulse Ox O2 Delivery O2 Flow Rate FiO2 03/17/17 00:52 03/17/17 00:01 98.5 66 15 100 Room Air Orders Orders Ketorolac Inj (Toradol Inj) (03/17/17 00:45) [facility] Medical Decision Making Medical Screen Exam Complete: Yes Emergency Medical Condition: Yes Differential Diagnosis Chronic pain, radiculopathy, neck problems, dissection, other Narrative Course Medical decision making 41-year-old with chronic pain. He with left-sided pain. Pain throughout her body. I don't think there is likely an acute cause for her pain. She looks otherwise well. She is on opiates and NSAIDs already. Recommend continue supportive treatment. Outpatient follow-up. Diagnosis Primary Impression: Chronic pain Additional Instructions: Continue current medications. Follow-up with her primary doctor in the next 2-4 days. Return to the emergency department for any new or worsening symptoms. Med/Other Pt SpecificInfo: No Change to Meds Disposition: 01 DISCHARGE HOME Condition: Stable Martir Welch MD Mar 17, 2017 00:50
== END 2017-03-17 00:56 | disposition home or self-care (01) ==
LOC: NEPE 23:59
DX: G89.29 Other chronic pain (principal); M79.89 Other specified soft tissue disorders; R20.2 Paresthesia of skin; M79.672 Pain in left foot; M79.602 Pain in left arm; M54.2 Cervicalgia; R07.9 Chest pain, unspecified; R10.9 Unspecified abdominal pain
CPT/HCPCS: 96372; 99284; J1885

== ENCOUNTER 2017-04-11 16:07 | Emergency (ER) | payer MEDICAID ==
[~2017-04-11] VITALS: Ht 165.1 cm; Wt 95.0 kg
[2017-04-11 16:09] VITALS: BP 128/82; PULSE 90; RESP 17; TEMP 98.5; O2SAT 98
--- NOTE | 2017-04-11 16:15 | PD ---
Physical Exam Time Seen by Provider: 16:14 Narrative 41-year-old female presents with complaint of an episode of shortness of breath lasting about 20 seconds 30 minutes ago. Reports left upper back pain for the last couple days. Denies recent illness. Denies cough, fevers. Says she feels nervous about the episode. Patient was seen on March 14 and for chronic plan. Patient seen in triage. Vital signs reviewed. Patient awaiting bed placement. Data Data Last Documented VS Vital Signs Date Time Temp Pulse Resp B/P (MAP) Pulse Ox O2 Delivery O2 Flow Rate FiO2 04/11/17 16:09 98.5 90 17 128/82 (97) 98 Room Air [facility] Supervised Visit with DHARA: Kathleen Lan Apr 11, 2017 16:15
[2017-04-11] MEDS ORDERED: OMEP20TA PO (16:36)
[2017-04-11] MEDS ORDERED: ALBUAER3 INH (16:36)
--- NOTE | 2017-04-11 16:36 | PD ---
HPI Chief Complaint: Respiratory Symptoms Time Seen by Provider: 16:22 Travel History International Travel<30 days: No Contact w/Intl Traveler<30days: No Traveled to known affect area: No History of Present Illness HPI 41 year-old female presents to department for evaluation of an isolated episode of what she felt like she could not catch her breath. She has a history of asthma. She does not have a rescue inhaler with her. She states she had eaten a sloppy Angel sandwich which gave her some indigestion. She then had what felt like an asthma attack but did not have her inhaler with her. This has since resolved on its own. Denies any recent illnesses, fever, chills. It was not associated with pain. She has no other symptoms reported this time. PFSH Past Medical History Hx Anticoagulant Therapy: No Anemia: Yes Heart Rhythm Problems: No Cardiac Catheterization: No Cardiovascular Problems: Yes (SICKLE CELL TRAIT) High Cholesterol: No Chemotherapy: No Congestive Heart Failure: No Cerebrovascular Accident: No Diabetes: No Diminished Hearing: No GERD: Yes Gout: Yes Heparin Induced Thrombocytopen: No Hypertension: No Immune Disorder: No Respiratory: No Immunizations Current: Yes Migraines: Yes Pneumonia: Yes Sickle Cell Disease: Yes (TRAIT) : 3 Para: 2 Miscarriage: 1 : 0 Tubal Ligation: Yes Past Surgical History Section: Yes (X 2) Coronary Artery Bypass Graft: No Gynecologic Surgery: Yes Hysterectomy: No Social History Alcohol Use: Yes (OCCASIONAL) Tobacco Use: No Substance Use: No Allergies-Medications (Allergen,Severity, Reaction): Coded Allergies: No Known Allergies (Verified , 04/11/17) Reported Meds & Prescriptions Reported Meds & Active Scripts Active Proair Hfa 8.5 GM Inh (Albuterol Sulfate) 90 Mcg/Act Aer 2 Puff INH Q4H PRN 108 mcg/actuation Omeprazole 20 Mg Tab 20 Mg PO DAILY Keflex (Cephalexin) 500 Mg Cap 500 Mg PO Q12H 7 Days Lortab (Hydrocodone-Acetaminophen) 5-325 Mg Tab 1 Tab PO Q4H PRN Review of Systems Except as stated in HPI: all other systems reviewed are Neg Physical Exam Narrative GENERAL: Well-nourished, well-developed female patient, in no acute distress. SKIN: Focused skin assessment warm/dry. HEAD: Normocephalic. EYES: No scleral icterus. No injection or drainage. NECK: Supple, trachea midline. No JVD or lymphadenopathy. CARDIOVASCULAR: Regular rate and rhythm without murmurs, gallops, or rubs. RESPIRATORY: Breath sounds equal bilaterally. No accessory muscle use. Clear throughout GASTROINTESTINAL: Abdomen soft, non-tender, nondistended. MUSCULOSKELETAL: No cyanosis, or edema. BACK: Nontender without obvious deformity. No CVA tenderness. Data Data Last Documented VS Vital Signs Date Time Temp Pulse Resp B/P (MAP) Pulse Ox O2 Delivery O2 Flow Rate FiO2 04/11/17 17:17 04/11/17 16:09 98.5 90 17 98 Room Air Orders Orders Ed Discharge Order (04/11/17 16:36) MDM Medical Decision Making Medical Screen Exam Complete: Yes Emergency Medical Condition: Yes Medical Record Reviewed: Yes Differential Diagnosis Indigestion versus bronchospasm versus asthma exacerbation Narrative Course 41 year-old female presents to emergency department for evaluation. Patient appears without distress. Her symptoms have resolved at this time. Sounds like the patient may have had a bronchospasm or esophageal spasm that has since resolved. She did not have any chest pain. No cardiac history. Will refill her rescue inhaler as well as give her a prescription for antacid. She is encouraged to follow-up with a primary care provider and return immediately with any acute worsening symptoms. Diagnosis Primary Impression: Bronchospasm Additional Impression: Acid indigestion Referrals: Primary Care Physician Patient Instructions: Bronchospasm (ED), General Instructions Additional Instructions: Follow-up with a primary care provider Avoid acidic foods Return immediately to the emergency department with any acute worsening of symptoms Med/Other Pt SpecificInfo: Prescription(s) given Scripts Albuterol 8.5 GM Inh (Proair Hfa 8.5 GM Inh) 90 Mcg/Act Aer 2 PUFF INH Q4H Y for SHORTNESS OF BREATH, #1 INHALER 0 Refills 108 mcg/actuation Prov: Kari Owusu 04/11/17 Omeprazole (Omeprazole) 20 Mg Tab 20 MG PO DAILY, #30 TAB 0 Refills Prov: Kari Owusu 04/11/17 Disposition: 01 DISCHARGE HOME Condition: Stable Kari Owusu Apr 11, 2017 16:36
== END 2017-04-11 17:21 | disposition home or self-care (01) ==
LOC: NEPK 16:07
DX: J45.909 Unspecified asthma, uncomplicated (principal); D64.9 Anemia, unspecified; D57.3 Sickle-cell trait; K21.9 Gastro-esophageal reflux disease without esophagitis; M10.9 Gout, unspecified; K30 Functional dyspepsia
CPT/HCPCS: 99284

== ENCOUNTER 2017-05-01 19:31 | Emergency (ER) | payer MEDICAID ==
[~2017-05-01 19:31] MED LIST changes: +ALBUAER3 INH; +OMEP20TA93 PO
[2017-05-01 19:32] VITALS: BP 136/75; PULSE 70; RESP 16; TEMP 98.7; O2SAT 100
[2017-05-01] MEDS ORDERED: CLIN150C14 PO (20:18)
[2017-05-01] MEDS ORDERED: NAPR500 PO (20:18)
--- NOTE | 2017-05-01 20:22 | PD ---
HPI Chief Complaint: Oral / Dental Pain or Problem Time Seen by Provider: 20:07 Travel History International Travel<30 days: No Contact w/Intl Traveler<30days: No Traveled to known affect area: No History of Present Illness HPI Patient comes in complaining of right upper dental pain ongoing for 5 days. Patient did take an ibuprofen with little relief her symptoms. Cold makes the pain worse. Pain radiates into her right ear. Describes pain is throbbing like in nature. Patient denies any nausea, vomiting, fevers, difficulty swallowing, , or seeing a dentist recently. PFSH Past Medical History Hx Anticoagulant Therapy: No Anemia: Yes Heart Rhythm Problems: No Cardiac Catheterization: No Cardiovascular Problems: Yes (SICKLE CELL TRAIT) High Cholesterol: No Chemotherapy: No Congestive Heart Failure: No Cerebrovascular Accident: No Diabetes: No Diminished Hearing: No GERD: Yes Gout: Yes Heparin Induced Thrombocytopen: No Hypertension: No Immune Disorder: No Respiratory: No Immunizations Current: Yes Migraines: Yes Pneumonia: Yes Sickle Cell Disease: Yes (TRAIT) ?: Not LMP: 04/17/2017 : 3 Para: 2 Miscarriage: 1 : 0 Tubal Ligation: Yes Past Surgical History Section: Yes (X 2) Coronary Artery Bypass Graft: No Gynecologic Surgery: Yes Hysterectomy: No Social History Alcohol Use: Yes (OCCASIONAL) Tobacco Use: No Substance Use: No Allergies-Medications (Allergen,Severity, Reaction): Coded Allergies: No Known Allergies (Verified Adverse Reaction, Unknown, 05/01/17) Reported Meds & Prescriptions Reported Meds & Active Scripts Active Naprosyn (Naproxen) 500 Mg Tab 500 Mg PO Q12HR Clindamycin (Clindamycin HCl) 150 Mg Cap 2 Cap PO Q6H 10 Days Proair Hfa 8.5 GM Inh (Albuterol Sulfate) 90 Mcg/Act Aer 2 Puff INH Q4H PRN 108 mcg/actuation Omeprazole 20 Mg Tab 20 Mg PO DAILY Keflex (Cephalexin) 500 Mg Cap 500 Mg PO Q12H 7 Days Lortab (Hydrocodone-Acetaminophen) 5-325 Mg Tab 1 Tab PO Q4H PRN Review of Systems Except as stated in HPI: all other systems reviewed are Neg Physical Exam Narrative GENERAL: Well-developed, overly nourished, in no acute distress, and non-ill appearing. SKIN: Focused skin assessment warm and dry. HEAD: Atraumatic. Normocephalic. EYES: Pupils equal and round. EOMI. No scleral icterus. No injection or drainage. ENT: No nasal bleeding or discharge. Mucous membranes pink and moist. Tympanic membranes pearly napoles bilaterally. Posterior pharynx nonerythematous without exudate. Uvula is midline. Poor dentition without evidence of visible or palpable abscess noted. Floor of the mouth, submandibular, and submental are all soft to palpation. NECK: Trachea midline. No cervical lymphadenopathy. Supple. No nuclear rigidity RESPIRATORY: No accessory muscle use. No respiratory distress. MUSCULOSKELETAL: No obvious deformities. No clubbing. No cyanosis. No edema. Full range of motion. NEUROLOGICAL: Awake and alert. No obvious cranial nerve deficits. Motor grossly within normal limits. Normal speech. PSYCHIATRIC: Appropriate mood and affect; insight and judgment normal. Data Data Last Documented VS Vital Signs Date Time Temp Pulse Resp B/P (MAP) Pulse Ox O2 Delivery O2 Flow Rate FiO2 05/01/17 20:43 05/01/17 19:32 98.7 70 16 100 Room Air Orders Orders Clindamycin (Cleocin) (05/01/17 20:30) Naproxen (Naprosyn) (05/01/17 20:30) MDM Medical Decision Making Medical Screen Exam Complete: Yes Emergency Medical Condition: Yes Differential Diagnosis Dentalgia, dental abscess, infected dental caries, other Narrative Course The patient presented with dental pain. There is no fever. There is no significant facial swelling or evidence of cellulitis. There is poor dentition but no evidence of drainable abscess at this time. There is no evidence of significant deep or invading abscess at this time. The patient will be placed on antibiotics and pain medication. The patient was instructed to follow up with a dentist. The patient was given the dental referral sheet. Warnings were discussed with the patient regarding worsening of infection. The patient is to return if pain worsens, develops progressive swelling or facial redness or fever. The patient agrees with plan. Patient in no obvious distress upon re-evaluation. Patient was asked if they wanted to speak to my attending, which the patient did not wish to do at this time. Any questions/concerns in reference to patient diagnosis/condition discussed and clarified prior to patient's discharge. Reinforced sheer importance of close follow up with patient's primary physician or primary care clinic. Instructed patient to return to ED immediately, if symptoms return/ worsen. Patient showed understanding of above instructions. Further instructions and recommendations were detailed in discharge paperwork. Patient ambulated without difficulty out of ED at discharge. Diagnosis Primary Impression: Dental infection Patient Instructions: Dental Abscess (ED), Dental Caries (DC), General Instructions Additional Instructions: Follow-up with your primary care physician and dentist as soon as possible. Rinse mouth with warm salt water gargles. Take all medication as prescribed. Return to the emergency department if symptoms get worse. Med/Other Pt SpecificInfo: Prescription(s) given Scripts Naproxen (Naprosyn) 500 Mg Tab 500 MG PO Q12HR, #14 TAB 0 Refills Prov: Kira Woods MD 05/01/17 Clindamycin (Clindamycin) 150 Mg Cap 2 CAP PO Q6H for Infection for 10 Days, #80 CAP 0 Refills Prov: Kira Woods MD 05/01/17 Disposition: 01 DISCHARGE HOME Condition: Stable Manoj Ho May 01, 2017 20:22
[2017-05-01] MEDS ORDERED: CLINDAMYCIN 150 MG CAP PO ONE (20:30)
[2017-05-01] MEDS ORDERED: NAPROXEN 500 MG TAB PO ONE (20:30)
== END 2017-05-01 20:49 | disposition home or self-care (01) ==
LOC: NEPK 19:31
DX: K08.89 Other specified disorders of teeth and supporting structures (principal); D64.9 Anemia, unspecified; D57.3 Sickle-cell trait; K21.9 Gastro-esophageal reflux disease without esophagitis; M10.9 Gout, unspecified; Z79.899 Other long term (current) drug therapy
CPT/HCPCS: 99283

== ENCOUNTER → 2017-05-04 00:24 | Emergency (ER) | payer MEDICAID ==
[~2017-05-04] VITALS: Ht 165.1 cm; Wt 94.0 kg
[~2017-05-04 00:24] MED LIST changes: +CLIN150C14 PO; +NAPR500 PO
[2017-05-04 00:26] VITALS: BP 146/76; PULSE 80; RESP 15; TEMP 98.2; O2SAT 100
== END | disposition left against medical advice (07) ==
LOC: NED 00:24
DX: Z53.21 Procedure and treatment not carried out due to patient leaving prior to being seen by health care provider (principal)
CPT/HCPCS: 99281

== ENCOUNTER 2017-07-12 01:21 | Emergency (ER) | payer MEDICAID ==
[~2017-07-12] VITALS: Ht 167.6 cm; Wt 76.0 kg
[2017-07-12 01:23] VITALS: BP 145/79; PULSE 79; RESP 16; TEMP 98; O2SAT 98
[2017-07-12] MEDS ORDERED: HYDR-3366 PO (02:34)
[2017-07-12] MEDS ORDERED: CYCL5TAB PO (02:34)
--- NOTE | 2017-07-12 05:12 | PD ---
HPI Chief Complaint: General Weakness Time Seen by Provider: 02:28 Travel History International Travel<30 days: No Contact w/Intl Traveler<30days: No Traveled to known affect area: No History of Present Illness HPI Patient reports she woke up out of sleep with her right arm numb burning it them flashed up to her face down her chest and her legs lasted 10 minutes. She called her son and they came right to the ER. She has no diabetic history she has no cardiac history she has no other past medical history. The pain lasted 10 minutes and then it resolved without taking any medication she did not take any aspirin she did not take Tums she did not take any antacid PFSH Past Medical History Hx Anticoagulant Therapy: No Anemia: Yes Heart Rhythm Problems: No Cardiac Catheterization: No Cardiovascular Problems: Yes (SICKLE CELL TRAIT) High Cholesterol: No Chemotherapy: No Congestive Heart Failure: No Cerebrovascular Accident: No Diabetes: No Diminished Hearing: No GERD: Yes Gout: Yes Heparin Induced Thrombocytopen: No Hypertension: No Immune Disorder: No Respiratory: No Immunizations Current: Yes Migraines: Yes Pneumonia: Yes Sickle Cell Disease: Yes (TRAIT) Tetanus Vaccination: Unknown Influenza Vaccination: Yes ?: Unknown : 3 Para: 2 Miscarriage: 1 : 0 Tubal Ligation: Yes Past Surgical History Section: Yes (X 2) Coronary Artery Bypass Graft: No Gynecologic Surgery: Yes Hysterectomy: No Family History Family Myocardial Infarction: Yes (PATERNAL AUNT at an early age) Social History Alcohol Use: Yes (OCCASIONAL) Tobacco Use: No Substance Use: No Allergies-Medications (Allergen,Severity, Reaction): Coded Allergies: No Known Allergies (Verified Adverse Reaction, Unknown, 07/12/17) Reported Meds & Prescriptions Reported Meds & Active Scripts Active Ativan (Lorazepam) 0.5 Mg Tab 0.5 Mg PO Q8H PRN Proair Hfa 8.5 GM Inh (Albuterol Sulfate) 90 Mcg/Act Aer 2 Puff INH Q4H PRN 108 mcg/actuation Reported Flexeril (Cyclobenzaprine HCl) 5 Mg Tab 5 Mg PO TID [place] (Hydrocodone-Acetaminophen) 10-325 Mg Tab 1 Tab PO Q4HR PRN Review of Systems Except as stated in HPI: all other systems reviewed are Neg Cardiovascular: Positive: Chest Pain or Discomfort Musculoskeletal: Positive: Myalgias, Cramping (right arm running upwards to her face then down entire body now gone in the ER) Physical Exam Narrative GENERAL: No acute distress SKIN: Warm and dry. HEAD: Atraumatic. Normocephalic. EYES: Pupils equal and round. No scleral icterus. No injection or drainage. ENT: No nasal bleeding or discharge. Mucous membranes pink and moist. Posterior pharynx is open no exudate NECK: Trachea midline. No JVD. CARDIOVASCULAR: Regular rate and rhythm. Auscultation no murmurs no rubs normal auscultation of her heart RESPIRATORY: No accessory muscle use. Clear to auscultation. Breath sounds equal bilaterally. GASTROINTESTINAL: Abdomen soft, non-tender, nondistended. Hepatic and splenic margins not palpable. MUSCULOSKELETAL: Extremities. Arms are without paresthesias massaging her neck muscles does not create any paresthesias in the arms without clubbing, cyanosis , or edema. No obvious deformities. NEUROLOGICAL: Awake and alert. No obvious cranial nerve deficits. Motor grossly within normal limits. Five out of 5 muscle strength in the arms and legs. Normal speech. PSYCHIATRIC: Appropriate mood and affect; insight and judgment normal. Data Data Last Documented VS Orders Orders Electrocardiogram (07/12/17 ) Ed Discharge Order (07/12/17 05:12) MDM Medical Decision Making Medical Screen Exam Complete: Yes Emergency Medical Condition: Yes Medical Record Reviewed: Yes Differential Diagnosis Frontal diagnosis includes TIA versus paresthesias versus her arm being asleep from neurapraxia from sleeping on her arm and having a panic attack versus cardiac versus central neurological she has no risk factors no past medical history and she says she's been waking up with panicky feelings for the last week when I investigate the possibility of a panic attack Narrative Course KG is normal sinus rhythm at a rate of 62 bpm I'll discharge her with Ativan when necessary if she wakes up feeling this way again and see if it subsides her feeling and she does not need to come to the ER follow-up with her primary care doctor Diagnosis Primary Impression: Paresthesias Scripts Lorazepam (Ativan) 0.5 Mg Tab 0.5 MG PO Q8H Y for ANXIETY AND/OR AGITATION, #10 TAB 0 Refills Prov: Mitchell Herrera MD 07/12/17 Disposition: 01 DISCHARGE HOME Condition: Good Mitchell Herrera MD Jul 12, 2017 05:12
[2017-07-12] MEDS ORDERED: LORA-392 PO (05:14)
--- NOTE | 2017-07-12 16:38 | EKG ---
Date Performed: 07/12/2017 Time Performed: 05:10:05 PTAGE: 42 years EKG: Sinus rhythm LOW QRS VOLTAGE IN PRECORDIAL LEADS NONSPECIFIC T-WAVE ABNORMALITY BORDERLINE ECG PREVIOUS TRACING : 12/26/2016 02.54 Since previous tracing, no significant change noted DOCTOR: Meir Cheatham Interpretating Date/Time 07/12/2017 16:38:06
== END 2017-07-12 05:46 | disposition home or self-care (01) ==
LOC: NEPC 01:21
DX: R20.2 Paresthesia of skin (principal)
CPT/HCPCS: 93005

== ENCOUNTER 2017-09-18 00:31 | Emergency (ER) | payer MEDICAID ==
[~2017-09-18 00:31] MED LIST changes: -CEPH-460 PO; -CLIN150C14 PO; +CYCL5TAB PO; +HYDR-3366 PO; -HYDR-3533 PO; +LORA-392 PO; -NAPR500 PO; -OMEP20TA93 PO
[2017-09-18] MEDS ORDERED: AUGM875T3 PO (19:06)
[2017-09-18] MEDS ORDERED: BENZ100 PO (19:06)
[2017-09-18] MEDS ORDERED: FLUT50SP EACH NARE (19:06)
== END 2017-09-18 02:04 | disposition left against medical advice (07) ==
LOC: NED 00:31
DX: R07.9 Chest pain, unspecified (principal); Z53.21 Procedure and treatment not carried out due to patient leaving prior to being seen by health care provider
CPT/HCPCS: 99281

== ENCOUNTER 2017-09-18 13:06 | Emergency (ER) | payer MEDICAID ==
[2017-09-18 14:26] VITALS: BP 130/80; PULSE 84; RESP 18; TEMP 98.2; O2SAT 100
--- NOTE | 2017-09-18 15:27 | RADRPT ---
EXAM DATE/TIME: 09/18/2017 14:46 [facility] COMPARISON: No previous studies available for comparison. INDICATIONS : Cough. MEDICAL HISTORY : None. SURGICAL HISTORY : None. ENCOUNTER: Initial ACUITY: 1 day PAIN SCORE: 7/10 LOCATION: Bilateral chest FINDINGS: PA and lateral views of the chest demonstrate the lungs to be symmetrically aerated without evidence of mass, infiltrate or effusion. The cardiomediastinal contours are unremarkable. Osseous structure s are intact. CONCLUSION: 1. No acute cardiopulmonary disease. Imer Canales MD on September 18, 2017 at 15:24 Board Certified Radiologist. This report was verified electronically.
--- NOTE | 2017-09-18 19:01 | PD ---
HPI Chief Complaint: Cold / Flu Symptoms Time Seen by Provider: 18:42 Travel History International Travel<30 days: No Contact w/Intl Traveler<30days: No Traveled to known affect area: No History of Present Illness HPI 42 YO F presents to the ED for evaluation of 6 day history of sinus congestion, rhinorrhea, dulled sense of hearing, nonproductive cough, ringing in the ears. Patient states that as the cough has progressed she's developed chest pain. Worsened by coughing. She denies fevers, chills, nausea, vomiting, shortness of breath, palpitations. She did not receive this years flu vaccine. She denies sick contacts. She denies history of seasonal allergies. She treated at home with Danielito with no improvement of symptoms. PFSH Past Medical History Hx Anticoagulant Therapy: No Anemia: Yes Heart Rhythm Problems: No Cardiac Catheterization: No Cardiovascular Problems: Yes (SICKLE CELL TRAIT) High Cholesterol: No Chemotherapy: No Congestive Heart Failure: No Cerebrovascular Accident: No Diabetes: No Diminished Hearing: No GERD: Yes Gout: Yes Heparin Induced Thrombocytopen: No Hypertension: No Immune Disorder: No Respiratory: No Immunizations Current: Yes Migraines: Yes Pneumonia: Yes Sickle Cell Disease: Yes (TRAIT) ?: Not LMP: 08/24/17 : 3 Para: 2 Miscarriage: 1 : 0 Tubal Ligation: Yes Past Surgical History Section: Yes (X 2) Coronary Artery Bypass Graft: No Gynecologic Surgery: Yes Hysterectomy: No Social History Alcohol Use: Yes (OCCASIONAL) Tobacco Use: No Substance Use: No Allergies-Medications (Allergen,Severity, Reaction): Coded Allergies: No Known Allergies (Verified Adverse Reaction, Unknown, 07/12/17) Reported Meds & Prescriptions Reported Meds & Active Scripts Active Tessalon Perles (Benzonatate) 100 Mg Cap 200 Mg PO TID PRN Fluticasone Nasal [place] 50 Mcg/Act Naspr 100 Mcg EACH NARE BID 10 Days 50 mcg/spray Augmentin (Amoxicillin-Clavulanate) 875-125 Mg Tab 1 Tab PO BID 14 Days Ativan (Lorazepam) 0.5 Mg Tab 0.5 Mg PO Q8H PRN Proair Hfa 8.5 GM Inh (Albuterol Sulfate) 90 Mcg/Act Aer 2 Puff INH Q4H PRN 108 mcg/actuation Reported Flexeril (Cyclobenzaprine HCl) 5 Mg Tab 5 Mg PO TID [place] (Hydrocodone-Acetaminophen) 10-325 Mg Tab 1 Tab PO Q4HR PRN Review of Systems Except as stated in HPI: all other systems reviewed are Neg Physical Exam Narrative GENERAL: Well-nourished, well-developed AA female in no acute distress. SKIN: Warm and dry. HEAD: Normocephalic. Atraumatic. EYES: No scleral icterus. No injection or drainage. PERRLA. EOMI. ENT: Pearly napoles tympanic membranes bilaterally. Bilateral serous effusions. Nasal mucosa is moist, boggy. Tender to palpation of the facial sinuses. Oropharynx with mild posterior eythema. No edema or exudate. NECK: Supple, trachea midline. No JVD or lymphadenopathy. CARDIOVASCULAR: Regular rate and rhythm without murmurs, gallops, or rubs. CHEST: Nontender throughout without deformity or crepitus. RESPIRATORY: Breath sounds clear and equal bilaterally. No accessory muscle use. GASTROINTESTINAL: Abdomen soft, non-tender, nondistended. + Bowel sounds MUSCULOSKELETAL: No cyanosis, or edema. BACK: Nontender without obvious deformity. No CVA tenderness. Data Data Last Documented VS Vital Signs Date Time Temp Pulse Resp B/P (MAP) Pulse Ox O2 Delivery O2 Flow Rate FiO2 09/18/17 14:26 98.2 84 18 130/80 (97) 100 Orders Orders Chest, Pa & Lat (09/18/17 ) Ed Discharge Order (09/18/17 19:07) MDM Medical Decision Making Medical Screen Exam Complete: Yes Emergency Medical Condition: Yes Differential Diagnosis Sinusitis versus upper respiratory infection versus postnasal drip versus bronchitis versus pneumonia versus pleurisy versus other Narrative Course 42 YO F presents to the ED for evaluation of 6 day history of sinus congestion, rhinorrhea, dulled sense of hearing, nonproductive cough, ringing in the ears. Patient states that as the cough has progressed she's developed chest pain. Worsened by coughing. She denies fevers, chills, nausea, vomiting, shortness of breath, palpitations. Patient is afebrile on presentation. On exam the nasal mucosa is moist and boggy. The patient is tender to palpation of the facial sinuses. The posterior oropharynx is mildly erythematous. Chest clear to auscultation bilaterally. Suspect sinusitis. Patient's prescribed Augmentin , fluticasone nasal spray, Tessalon Perles. She is instructed take the medications as prescribed, follow with social research assistant, return for worsening symptoms. She is stable and discharged home. Diagnosis Primary Impression: Sinusitis Qualified Codes: J01.90 - Acute sinusitis, unspecified Referrals: Ear / Nose / Throat Specialist Additional Instructions: Rest, hydrate. Take every antibiotic pill until they're all gone. Fluticasone nasal spray 2 puffs in each nostril daily. Take Tessalon as prescribed to help reduce urge to cough. Follow with the social research assistant. Return to the ED for worsening symptoms or any urgent or emergent medical condition. Med/Other Pt SpecificInfo: Prescription(s) given Scripts Benzonatate (Tessalon Perles) 100 Mg Cap 200 MG PO TID Y for COUGH, #12 CAP 0 Refills Prov: Willy Morelos MD 09/18/17 Fluticasone Nasal [place] (Fluticasone Nasal [place]) 50 Mcg/Act Naspr 100 MCG EACH NARE BID for Allergy Management for 10 Days, #1 BOTTLE 0 Refills 50 mcg/spray Prov: Willy Morelos MD 09/18/17 Amoxicillin-Clavulanate (Augmentin) 875-125 Mg Tab 1 TAB PO BID for Infection for 14 Days, #28 TAB 0 Refills Prov: Willy Morelos MD 09/18/17 Samia Vizcarra Sep 18, 2017 19:01
[2017-09-18] MEDS ORDERED: FLUT50SP EACH NARE (19:06)
[2017-09-18] MEDS ORDERED: BENZ100 PO (19:06)
[2017-09-18] MEDS ORDERED: AUGM875T3 PO (19:06)
== END 2017-09-18 19:28 | disposition home or self-care (01) ==
LOC: NEPK 13:06
DX: J01.90 Acute sinusitis, unspecified (principal); D57.3 Sickle-cell trait; K21.9 Gastro-esophageal reflux disease without esophagitis
CPT/HCPCS: 71046; 99283

== ENCOUNTER 2017-11-06 23:58 | Emergency (ER) | payer MEDICAID ==
[~2017-11-06 23:58] MED LIST changes: +AUGM875T3 PO; +BENZ100 PO; +FLUT50SP EACH NARE
== END 2017-11-07 00:39 | disposition left against medical advice (07) ==
LOC: NED 23:58
DX: R07.9 Chest pain, unspecified (principal)
CPT/HCPCS: 99281